=== PATIENT | female | born 1970 | race Hispanic/Latino ===

== ENCOUNTER → 2017-09-16 | Outpatient (CLI) | payer BC ==
--- NOTE | 2017-09-17 18:10 | Diagnostic Imaging Report ---
#[id number] - [id number] #BILATERAL DIGITAL SCREENING MAMMOGRAM WITH CAD: 09/16/2017 CLINICAL: Routine screening. Comparison is made to exam dated: 11/01/2014 mammogram - [facility]. Current study contains 4 films. The tissue of both breasts is heterogeneously dense. This may lower the sensitivity of mammography. Current study was also evaluated with a Computer Aided Detection (CAD) system. There is a possible mass in the left breast middle depth lateral region seen on the craniocaudal view only. This is also highlighted by CAD analysis. Scattered benign calcifications are present. No other significant masses, calcifications, or other findings are seen in either breast. IMPRESSION: INCOMPLETE: NEEDS ADDITIONAL IMAGING EVALUATION The possible mass in the left breast is indeterminate. Additional views with possible ultrasound are recommended. The patient will be contacted by the Mammography Department to schedule this appointment. Derrick Christine Jr., D.O. cw/:09/17/2017 12:02:43 Ordering Box Operator: [place] LANGFORD(Mónica)(Mercedes), [facility] letter sent: Additional Imaging Needed Mammogram BI-RADS: 0 Indeterminate
== END ==
LOC: MAMMO 11:40
PROVIDERS: ATTEND Internal Medicine
DX: Z12.31 Encounter for screening mammogram for malignant neoplasm of breast (principal)
CPT/HCPCS: 77067

== ENCOUNTER → 2017-10-05 | Outpatient (CLI) | payer BC ==
--- NOTE | 2017-10-05 15:42 | Diagnostic Imaging Report ---
#[id number] - [id number] #UNILATERAL LEFT DIGITAL DIAGNOSTIC MAMMOGRAM WITH SPOT COMPRESSION: 10/05/2017 Comparison is made to exams dated: 09/16/2017 mammogram and 11/01/2014 mammogram - [facility]. Current study contains 2 films. The tissue of the left breast is heterogeneously dense. This may lower the sensitivity of mammography. Additional images confirm a bilobe appearing mass in the upper outer aspect of the left breast. This may represent a cyst but is indeterminate. An ultrasound is recommended. No significant masses, calcifications, or other findings are seen in the breast. IMPRESSION: NEGATIVE Mass in the left breast is confirmed on the additional views. An ultrasound is recommended and will be performed today. Derrick Christine Jr., D.O. cw/:10/05/2017 14:41:56 Family Practice Doctor: [place] LANGFORD(Mónica)(M), [facility] letter sent: Additional Imaging Needed Mammogram BI-RADS: 1 Negative
--- NOTE | 2017-10-05 15:42 | Diagnostic Imaging Report ---
#[id number] - USBRECOMLT ULTRASOUND OF THE LEFT BREAST : 10/05/2017 Comparison is made to exam dated: 10/05/2017 mammogram - [facility]. Color flow and real-time ultrasound were performed on the outer aspect of the left breast. There are multiple cysts noted. -At 1 o'clock 3 cm from the nipple is a bilobe cyst measuring 1.3 x 0.7 x 1.1 cm -At 2 o'clock 3 cm from the nipple is a cyst measuring 1.2 x 0.7 x 1.2 cm -At 3 o'clock 1 cm from the nipple is a cyst measuring 0.9 x 4.0 x 0.8 cm -Multiple smaller cysts are also noted. IMPRESSION: BENIGN There is no sonographic evidence of malignancy. A 1 year screening mammogram is recommended. Derrick Christine Jr., D.O. cw/:10/05/2017 15:01:29 [employer] Chief: TONY CLEMENTS, [facility] letter sent: Normal Exam Ultrasound BI-RADS: 2 Benign
== END ==
LOC: MAMMO 13:04
PROVIDERS: ATTEND Internal Medicine
DX: N63.20 Unspecified lump in the left breast, unspecified quadrant (principal)

== ENCOUNTER → 2020-06-03 | Outpatient (CLI) | payer BC | LOC: MAMMO 09:50 | PROVIDERS: ATTEND Internal Medicine | DX: Z12.31 Encounter for screening mammogram for malignant neoplasm of breast (principal) | CPT/HCPCS: 77067 ==

== ENCOUNTER → 2021-11-12 | Outpatient (CLI) | payer OTHER | LOC: MAMMO 10:16 | PROVIDERS: ATTEND Internal Medicine | DX: Z12.31 Encounter for screening mammogram for malignant neoplasm of breast (principal); Z13.820 Encounter for screening for osteoporosis; N95.9 Unspecified menopausal and perimenopausal disorder | CPT/HCPCS: 77067; 77080 ==